=== PATIENT | female | born 1935 | race Caucasian/White ===

== ENCOUNTER 2021-01-21 13:30 | Outpatient (CLI) | payer MEDICARE, SELFPAY | END 2021-01-21 13:31 | disposition home or self-care (01) | PROVIDERS: PCP Internal Medicine | DX: Z23 Encounter for immunization (principal) | CPT/HCPCS: 0001A; 91300 ==

== ENCOUNTER 2021-02-11 13:28 | Outpatient (CLI) | payer MEDICARE, SELFPAY | END 2021-02-11 13:29 | disposition home or self-care (01) | LOC: ANHCOVIDVC 13:28 | PROVIDERS: PCP Internal Medicine | DX: Z23 Encounter for immunization (principal) | CPT/HCPCS: 0002A; 91300 ==

== ENCOUNTER 2021-05-18 14:55 | Outpatient (CLI) | payer MEDICARE, SELFPAY ==
--- NOTE | ~2021-05-18 | CT_ITS ---
EXAMINATION: CTA brain DATE: 05/18/2021 15:48 INDICATION: Intermittent ataxia. Neurology. Lack of coordination. TECHNIQUE: Computed tomographic angiography (CTA) of the head was performed without and with 100 mL O mnipaque-350 intravenous contrast. Automated exposure control and iterative reconstruction technique were employed. The dose-length product was 1017.81 mGy-cm. Maximum intensity projection 3D reconstru ctions were created. Volume-rendered 3D reconstructions of the intracranial arteries were created by the technologist on a separate workstation. COMPARISON: Head CT 01/29/2019 FINDINGS: There are scattered areas of low attenuation in the cerebral white matter and right basal g anglia. There is no intracranial hemorrhage, acute infarction, or abnormal intracranial mass lesion. The ventricles are normal in size. There are likely changes of ocular lens replacement surgeries. The re is mild mucosal thickening in the paranasal sinuses. The mastoid air cells are normal. The vertebr al arteries are codominant. There is no significant stenosis of basilar artery or the posterior cereb ral arteries. Right P1 posterior cerebral artery segment is small, a normal variant. The posterior co mmunicating arteries are normal. There is no significant stenosis of the intracranial internal caroti d arteries or anterior or middle cerebral arteries. Anterior communicating artery is normal. There is no aneurysm. IMPRESSION: 1. Stable moderate nonspecific cerebral white matter disease and disease of the right basal ganglia, which likely represents chronic small vessel ischemic disease. Reviewed, dictated and finalized at location A. IMPRESSION: 1. Stable moderate nonspecific cerebral white matter disease and disease of the right basal ganglia, which likely represents chronic small vessel ischemic dis ease.
[2021-05-19 07:47] LABS: Estimated Glomerular Filt Rate 43
== END 2021-05-18 14:56 | disposition home or self-care (01) ==
PROVIDERS: PCP Internal Medicine; Visit Provider Nurse Practitioner
DX: R26.89 Other abnormalities of gait and mobility (principal); M79.2 Neuralgia and neuritis, unspecified; R93.0 Abnormal findings on diagnostic imaging of skull and head, not elsewhere classified
CPT/HCPCS: 70496; Q9967

== ENCOUNTER 2022-08-10 13:54 | Outpatient (CLI) | payer MEDICARE, SELFPAY ==
--- NOTE | 2022-08-17 15:27 | WPDHOLTEREM ---
Holter/Event Monitor Holter/Event Monitor Date of procedure: 08/10/22 Holter/Event Procedure: 48 Hr Holter Monitor Indications: Syncope Conclusion: 1. 48 hour holter monitor on 08/10/22. 2. Predominant rhythm is sinus rhythm. HR range 62-125 bpm; average HR 89 bpm. 3. There are 77 premature supraventricular complexes and 6 supraventricular couplets. There are 3 episodes of atrial tachycardia, fastest at 138 bpm and longest lasting 6 beats. 4. There are 3 premature ventricular complexes. No ventricular tachycardia. 5. No sinoatrial or atrioventricular blocks. No significant pauses greater than 2 seconds. 6. Patient reports symptoms of dizziness and nausea which demonstrate sinus tachycardia at 114 bpm.
== END 2022-08-10 13:55 | disposition home or self-care (01) ==
PROVIDERS: Visit Provider Internal Medicine
DX: R55 Syncope and collapse (principal)
CPT/HCPCS: 93225; 93226